=== PATIENT | female | born 1990 ===

== ENCOUNTER 2020-11-18 05:40 | Day surgery (SDC) | payer OTHER | END 2020-11-18 22:20 | disposition home or self-care (01) | LOC: CIR.AMB 05:40 | PROVIDERS: ATTEND Surgery | DX: C50.812 Malignant neoplasm of overlapping sites of left female breast (principal); D24.1 Benign neoplasm of right breast; Z20.822 Contact with and (suspected) exposure to COVID-19 ==

== ENCOUNTER → 2021-02-24 | Day surgery (SDC) | payer OTHER | END | disposition home or self-care (01) | LOC: ADM 02-23 08:30 → CIR.AMB 02-23 08:30 | PROVIDERS: ATTEND Plastic Surgery | DX: C50.212 Malignant neoplasm of upper-inner quadrant of left female breast (principal); Z90.13 Acquired absence of bilateral breasts and nipples; Z20.822 Contact with and (suspected) exposure to COVID-19 | CPT/HCPCS: 19342; 15771; C1789 ==